=== PATIENT | male | born 2000 | race Caucasian/White ===

== ENCOUNTER 2024-07-31 20:49 | Observation (INO) ==
--- NOTE | 2024-07-31 21:41 | Emergency Department Note ---
Impression & Plan Acute appendicitis, Right lower quadrant abdominal pain ED Provider Note NAME: RUCHI CHRISTIE AGE: 23 SEX: M : 2000 ARRIVES VIA: Walk-In INFORMANT: Patient, ED PROVIDER(S): Michelet Parsons DO CHIEF COMPLAINT: Abdominal pain HPI: The patient is a 23-year-old male who presented to the emergency department for an evaluation of abdominal pain. The patient started having abdominal pain over the course the last 24 hours. Initially was generalized but now it appears to be in his right lower quadrant. He denies having any fever. He has had nausea and vomiting. He has no history of similar episodes in the past. The patient states pain is worsened with ambulation and palpation of the right lower quadrant. ROS: See above HPI for pertinent positives & negatives. A total of 10 systems reviewed and were otherwise negative. PAST MEDICAL HISTORY: See Below PAST SURGICAL HISTORY: See Below FAMILY HISTORY: See Below SOCIAL HISTORY: See Below HOME MEDICATIONS: See Below ALLERGIES: See Below VITALS: See Below PHYSICAL EXAMINATION: GENERAL: Patient is awake alert in no acute distress patient is resting comfortably and showing no signs of anxiety EYES: The conjunctivae are clear. The pupils are round and reactive. EARS, NOSE, MOUTH AND THROAT: The nose is without any evidence of any deformity. NECK: The neck is nontender and supple. RESPIRATORY: Normal respiratory effort is noted there is no evidence of wheezing rhonchi or rales CARDIOVASCULAR: Regular rate and rhythm noted there no murmurs rubs or gallops normal S1 normal S2. GASTROINTESTINAL: The abdomen is soft and nondistended. There is right lower quadrant tenderness which is moderate. MUSCULOSKELETAL/EXTREMITIES: There is no evidence of gross deformity full range of motion is noted in the hips and shoulders. SKIN: There is no obvious evidence of any rash. There are no petechiae, pallor or cyanosis noted. NEUROLOGIC: Patient is awake alert and oriented x3 MEDICAL DECISION MAKING: The patient is a 23-year-old male who presented to the emergency department for an evaluation of abdominal pain. The patient's pain appears to be consistent with acute appendicitis. He did have significant tenderness and guarding in the right lower quadrant. I discussed the patient's laboratory and radiographic studies with him. He was treated with IV fluids and IV antiemetics as well as IV pain medication. He was also treated with IV antibiotics for appendicitis that was noted on CAT scan. I discussed the patient's condition with the on- call general surgeon. They have agreed to evaluate the patient in the emergency department for further management and disposition. Triage Nursing notes reviewed. Prior medical records reviewed Vital Signs: reviewed and remarkable for hypotension. Differential diagnosis: Etiologies such as appendicitis, diverticulitis, obstruction, inflammatory bowel disease, renal colic, PUD, biliary pathology, pancreatitis, mesenteric ischemia, aortic pathology, infections, genitourinary, UTI, perforated viscus, as well as others were entertained. ER treatment provided: See below Diagnostics interpreted by me: ECG: none Cardiac Monitoring: An order was placed for continuous cardiac monitoring. The monitor shows a rate of 60 bpm with sinus rhythm. Laboratory studies: As stated above and show below. Imaging studies: See below. Radiographic imaging was reviewed by myself Consultation(s): I discussed this case with Dr. Padilla who is on-call for the general surgical group. Past Med/Surg History Problem List (Updated 07/31/24 @ 23:08 by Michelet Parsons DO) Right lower quadrant abdominal pain (Acute) Acute appendicitis (Acute) No significant past surgical history No chronic diseases present Social History Smoking Status: Current some day smoker Feels Safe at Home: Yes Results & Data (ED) Vital Signs Vital Signs - 24 hr 07/31/24 21:11 07/31/24 21:15 07/31/24 21:35 Temperature 36.5 C Temperature Source Temporal Artery Scan Pulse Rate 66 62 70 Pulse Rate [Apical] Pulse Rhythm Regular Pulse Rhythm [Apical] Pulse Strength [Apical] Respiratory Rate 20 18 Respiratory Effort / Characteristics Respiratory Depth Respiratory Pattern Blood Pressure 127/77 Blood Pressure [Right Arm] Blood Pressure Mean 93 Blood Pressure Mean [Right Arm] Blood Pressure Position [Right Arm] Pulse Oximetry 97 98 Oxygen Delivery Method Room Air Room Air Sepsis Recent Fever Within 48 Hours No Sepsis New/Unexplained Change in Mental Status No Sepsis Action Taken by Nursing No Action Required 07/31/24 22:00 Temperature Temperature Source Pulse Rate Pulse Rate [Apical] 60 Pulse Rhythm Pulse Rhythm [Apical] Regular Pulse Strength [Apical] Normal Respiratory Rate 18 Respiratory Effort / Characteristics Non-Labored Spontaneous Respiratory Depth Normal Respiratory Pattern Regular Blood Pressure Blood Pressure [Right Arm] 97/75 L Blood Pressure Mean Blood Pressure Mean [Right Arm] 82 Blood Pressure Position [Right Arm] Lying Pulse Oximetry 99 Oxygen Delivery Method Room Air Sepsis Recent Fever Within 48 Hours Sepsis New/Unexplained Change in Mental Status Sepsis Action Taken by Long Term Medications Current Medication List: was personally reviewed by me Laboratory Data Attestation: I reviewed the patient's lab results. 07/31/24 21:27 07/31/24 21:27 Lab Results 07/31/24 07/31/24 Range/Units 21:27 22:47 WBC 15.89 H (4.8-10.8) K/ul RBC 5.15 (4.70-6.10) M/uL Hgb 15.8 (14.0-18.0) g/dl Hct 46.6 (42.0-52.0) % MCV 90.5 (80.0-100.0) fL MCH 30.7 (25.0-34.0) pg MCHC 33.9 (32.0-36.0) g/dL RDW Std Deviation 39.2 (36.4-46.3) fL RDW Coeff of Mj 11.9 (11.5-14.5) % Plt Count 224 (130-400) K/uL MPV 10.2 (9.4-12.4) fL Immature Gran % (Auto) 0.3 % Neut % (Auto) 74.8 % Lymph % (Auto) 16.6 % [place] % (Auto) 7.1 % Eos % (Auto) 0.9 % Baso % (Auto) 0.3 % Neut # (Auto) 11.90 H (1.40-6.50) K/uL Lymph # (Auto) 2.63 (1.20-3.40) K/uL [place] # (Auto) 1.13 H (0.11-0.59) K/uL Eos # (Auto) 0.14 (0.00-0.50) K/uL Baso # (Auto) 0.04 (0.00-0.20) K/uL Immature Gran # (Auto) 0.05 (0.01-0.20) K/uL Sodium 138 (136-145) mmol/L Potassium 3.7 (3.5-5.1) mmol/L Chloride 102 (98-107) mmol/L Carbon Dioxide 28 (21-32) mmol/L Anion Gap 8 (3-11) BUN 17 (6-23) mg/dl Creatinine 1.05 (0.6-1.4) mg/dl Est Cr Clr Drug Dosing 148.5 ml/min Est GFR ( Amer) 117.0 ml/min Est GFR (Non-Af Amer) 101.0 ml/min BUN/Creatinine Ratio 16.2 (10-20) Glucose 84 (70-99(Fasting)) mg/dl Calcium 9.3 (8.6-10.3) mg/dl Total Bilirubin 0.4 (0.2-1.0) mg/dl AST 18 (13-39) U/L ALT 22 (7-52) U/L Alkaline Phosphatase 87 (34-104) U/L Total Protein 7.6 (6.0-8.3) gm/dl Albumin 4.9 (3.4-5.0) gm/dl Globulin 2.7 (2.5-4.0) gm/dl Albumin/Globulin Ratio 1.8 (0.9-2) Lipase 15 (11-82) U/L Urine Color Yellow Urine Appearance Clear (Clear) Urine pH 6.5 (4.5-7.5) Ur Specific [place] > 1.045 H (1.000-1.030) Urine Protein Negative (Negative) Urine Glucose (UA) Negative (Negative) Urine Ketones Negative (Negative) Urine Blood Negative (Negative) Urine Nitrite Negative (Negative) Urine Bilirubin Negative (Negative) Urine Urobilinogen Negative (Negative) Ur Leukocyte Esterase Negative (Negative) Administered Medications Sodium Chloride (Nss) 1,000 mls @ 999 mls/hr IV .Q1H1M ONE Stop: 07/31/24 23:34 Last Admin: 07/31/24 22:47 Dose: 999 mls/hr Documented By: IDD Discontinued Medications Sodium Chloride (Nss) 1,000 mls @ 999 mls/hr IV .Q1H1M ONE Stop: 07/31/24 22:33 Last Infusion: 07/31/24 23:06 Dose: Infused Documented By: Admin: 07/31/24 21:56 Dose: 999 mls/hr Documented By: RAJESH Acetaminophen (Ofirmev) 1,000 mg in 100 mls @ 400 mls/hr IV NOW STA Stop: 07/31/24 21:47 Last Infusion: 07/31/24 22:24 Dose: Infused Documented By: Admin: 07/31/24 21:56 Dose: 400 mls/hr Documented By: RAJESH Piperacillin Sod/Tazobactam Sod (Zosyn) 4.5 gm in 100 mls @ 200 mls/hr IV NOW ONE Stop: 07/31/24 23:03 Last Admin: 07/31/24 22:47 Dose: 200 mls/hr Documented By: RAJESH Ioversol (Optiray 320 100ml) 91 ml IV ONCE ONE Stop: 07/31/24 21:58 Last Admin: 07/31/24 21:57 Dose: 91 ml Documented By: CLAUDE Ondansetron HCl (Ondansetron Inj 2 Mg/Ml 2 Ml Vial) 4 mg IV NOW STA Stop: 07/31/24 21:34 Last Admin: 07/31/24 21:56 Dose: 4 mg Documented By: RAJESH Imaging Data Attestation: I personally reviewed and interpreted this imaging study as follows: My Impression: CT of the abdomen and pelvis was obtained in the emergency department. My interpretation is tubular structure in the right lower quadrant with stranding. This could be consistent with acute appendicitis. Final report below. Radiologist's Impression: Abdomen/Pelvis CT 07/31/24 21:33 CR Exam(s): CT ABDOMEN + PELVIS With Contrast IV Amt: 91 ML OPTIAY 320 EXAM: CT Abdomen and Pelvis With Intravenous Contrast CLINICAL HISTORY: Reason for exam: RLQ pain. TECHNIQUE: Axial computed tomography images of the abdomen and pelvis with intravenous contrast. CTDI is 28.14 mGy and DLP is 1513.9 mGy-cm. Automated exposure control was utilized for the study. A dose lowering technique was utilized adhering to the principles of ALARA. CONTRAST: Patient received 91 ML OPTIAY 320 of IV contrast COMPARISON: No relevant prior studies available. FINDINGS: Lung bases: Unremarkable. No mass. No consolidation. ABDOMEN: Liver: Fatty infiltration of liver. Gallbladder and bile ducts: Unremarkable. No calcified stones. No ductal dilation. Pancreas: Unremarkable. No mass. No ductal dilation. Spleen: Unremarkable. No splenomegaly. Adrenals: Unremarkable. No mass. Kidneys and ureters: Unremarkable. No solid mass. No hydronephrosis. Stomach and bowel: Unremarkable. No obstruction. No mucosal thickening. PELVIS: Appendix: Acute appendicitis without periappendiceal abscess. Bladder: Unremarkable. No mass. Reproductive: Unremarkable as visualized. ABDOMEN and PELVIS: Intraperitoneal space: Unremarkable. No free air. No significant fluid collection. Bones/joints: No acute fracture. No dislocation. Soft tissues: Unremarkable. Vasculature: Unremarkable. No abdominal aortic aneurysm. Lymph nodes: Unremarkable. No enlarged lymph nodes. IMPRESSION: Acute appendicitis without periappendiceal abscess Communications: Call Doctor Appendicitis Electronically signed by: Jadon Alvarez MD 07/31/24 22:25 PM Discharge Plan Visit Data Chief Complaint: Abdominal Pain Stated Complaint: ABD PAIN ED Provider: Michelet Parsons Discharge Problem: Acute appendicitis, Right lower quadrant abdominal pain Patient Disposition: Being Evaluated by Surgeon Forms Stand Alone Forms: [facility] Referrals Referrals: [facility] [Primary Care Provider] - Discharge Problem: Acute appendicitis Qualifiers: Acute appendicitis type: with localized peritonitis Appendicitis gangrene presence: without gangrene Appendicitis perforation presence: without perforation Appendicitis abscess presence: without abscess Qualified Code(s): K 35.30 - Acute appendicitis with localized peritonitis, without perforation or gangrene
[2024-07-31 21:43] LABS: Basophils # (auto) 0.04 K/uL (0.00-0.20); Basophils % (auto) 0.3 %; Eosinophils # (auto) 0.14 K/uL (0.00-0.50); Eosinophils % (auto) 0.9 %; Hematocrit (blood only) 46.6 % (42.0-52.0); Hemoglobin 15.8 g/dl (14.0-18.0); Immature Granulocytes # (auto) 0.05 K/uL (0.01-0.20); Immature Granulocytes % (auto) 0.3 %; Lymphocytes # (auto) 2.63 K/uL (1.20-3.40); Lymphocytes % (auto) 16.6 %; Mean Corpuscular Hemoglobin 30.7 pg (25.0-34.0); Mean Corpuscular Hgb Conc 33.9 g/dL (32.0-36.0); Mean Corpuscular Volume 90.5 fL (80.0-100.0); Mean Platelet Volume 10.2 fL (9.4-12.4); Monocytes # (auto) 1.13 K/uL (0.11-0.59); Monocytes % (auto) 7.1 %; Neutrophils % (auto) 74.8 %; Platelet Count 224 K/uL (130-400); RDW Coefficient of Variation 11.9 % (11.5-14.5); RDW Standard Deviation 39.2 fL (36.4-46.3); Red Blood Count 5.15 M/uL (4.70-6.10); White Blood Count 15.89 K/ul (4.8-10.8)
[2024-07-31 21:56] LABS: Albumin Globulin Ratio 1.8 (0.9-2); Albumin Level 4.9 gm/dl (3.4-5.0); BUN Creatinine Ratio 16.2 (10-20); Bilirubin,Total 0.4 mg/dl (0.2-1.0); Calcium 9.3 mg/dl (8.6-10.3); Creatinine Clr Calc Pharmacy 148.5 ml/min; Globulin 2.7 gm/dl (2.5-4.0); Potassium 3.7 mmol/L (3.5-5.1); Total Protein 7.6 gm/dl (6.0-8.3)
[2024-07-31] MEDS: ONDANSETRON INJ 2 MG/ML 2 ML VIAL IV STA (21:56)
[2024-07-31] MEDS: ACETAMINOPHEN 1,000 MG/100 ML VIAL IV STA (21:56)
[2024-07-31] MEDS: SODIUM CHLORIDE 0.9% 1,000 ML IV ONE ×2 (21:56→22:47)
[2024-07-31] MEDS: OPTIRAY 320 100ml IV ONE (21:57)
--- NOTE | 2024-07-31 22:26 | CT Scan Report ---
Exam(s): CT ABDOMEN + PELVIS With Contrast IV Amt: 91 ML OPTIAY 320 EXAM: CT Abdomen and Pelvis With Intravenous Contrast CLINICAL HISTORY: Reason for exam: RLQ pain. TECHNIQUE: Axial computed tomography images of the abdomen and pelvis with intravenous contrast. CTDI is 28.14 mGy and DLP is 1513.9 mGy-cm. Automated exposure control was utilized for the study. A dose lowering technique was utilized adhering to the principles of ALARA. CONTRAST: Patient received 91 ML OPTIAY 320 of IV contrast COMPARISON: No relevant prior studies available. FINDINGS: Lung bases: Unremarkable. No mass. No consolidation. ABDOMEN: Liver: Fatty infiltration of liver. Gallbladder and bile ducts: Unremarkable. No calcified stones. No ductal dilation. Pancreas: Unremarkable. No mass. No ductal dilation. Spleen: Unremarkable. No splenomegaly. Adrenals: Unremarkable. No mass. Kidneys and ureters: Unremarkable. No solid mass. No hydronephrosis. Stomach and bowel: Unremarkable. No obstruction. No mucosal thickening. PELVIS: Appendix: Acute appendicitis without periappendiceal abscess. Bladder: Unremarkable. No mass. Reproductive: Unremarkable as visualized. ABDOMEN and PELVIS: Intraperitoneal space: Unremarkable. No free air. No significant fluid collection. Bones/joints: No acute fracture. No dislocation. Soft tissues: Unremarkable. Vasculature: Unremarkable. No abdominal aortic aneurysm. Lymph nodes: Unremarkable. No enlarged lymph nodes. IMPRESSION: Acute appendicitis without periappendiceal abscess Communications: Call Doctor Appendicitis Electronically signed by: Jadon Alvarez MD 07/31/24 22:25 PM
[2024-07-31] MEDS: PIPERACILLIN/TAZOBACTAM 4.5 GM/100 ML BAG IV ONE (22:47)
[2024-07-31 23:03] LABS: Appearance Urine Clear (Clear); Bilirubin Urine Negative (Negative); Blood Urine Negative (Negative); Color Urine Yellow; Glucose Urine UA Negative (Negative); Ketones Urine Negative (Negative); Leukocyte Esterase Urine Negative (Negative); Nitrite Urine Negative (Negative); Protein Urine Negative (Negative); Specific Gravity Urine > 1.045 (1.000-1.030); Urobilinogen Urine Negative (Negative); pH Urine 6.5 (4.5-7.5)
--- NOTE | 2024-07-31 23:28 | History & Physical Report ---
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 He did have nausea and vomited once. No diarrhea. Last ate at 6 PM tonight. Denies fevers. Denies easing of the pain. White count of 15. CT scan with appendicitis. Allergies Allergy/AdvReac Type Severity Reaction Status Date / Time No Known Allergies Allergy Unverified 07/31/24 23:24 Home Medications Medication Instructions Recorded Confirmed Type levothyroxine 100 mcg tablet 100 mcg PO DAILYBB 07/31/24 07/31/24 History (Synthroid) methylphenidate HCl 54 mg 54 mg PO QAM 07/31/24 07/31/24 History tablet,extended release 24 hr (Concerta) semaglutide 1 mg/dose (4 mg/3 mL) 1 mg subcut WK 07/31/24 07/31/24 History subcutaneous pen injector (Ozempic) Past Med/Surg History Problem List Right lower quadrant abdominal pain (Acute) Acute appendicitis (Acute) No significant past surgical history No chronic diseases present Social History Smoking Status: Current some day smoker Feels Safe at Home: Yes Review of Systems Review of Systems: All systems reviewed & are unremarkable except as noted in HPI & below Physical Exam Constitutional: WD/WN, vitals as above Eyes: PERRL, conjunctivae normal, anicteric sclerae Neck: trachea midline, no thyromegaly Respiratory: normal respiratory effort; no respiratory distress and no labored breathing Cardiovascular: Rate/Rhythm: regular rate and regular rhythm Gastrointestinal (Abdomen): Inspection/Auscultation: abdomen normal to inspection; abdomen not distended Percussion/Palpation: + abdomen tender ( RLQ) and abdomen soft; no guarding and abdomen not rigid Skin: no rashes, warm and dry Psychiatric: A+Ox3, euthymic affect Results & Data Results & Data Vital Signs (Past 12 Hours) Vital Signs Temp Pulse Pulse Resp BP BP Pulse Ox 07/31/24 22:00 60 18 97/75 L 99 07/31/24 21:35 70 07/31/24 21:15 62 18 98 07/31/24 21:11 36.5 C 66 20 127/77 97 O2 Del Method 07/31/24 22:00 Room Air 07/31/24 21:35 07/31/24 21:15 Room Air 07/31/24 21:11 Room Air Laboratory Results 07/31/24 07/31/24 Range/Units 22:47 21:27 WBC 15.89 H (4.8-10.8) K/ul RBC 5.15 (4.70-6.10) M/uL Hgb 15.8 (14.0-18.0) g/dl Hct 46.6 (42.0-52.0) % MCV 90.5 (80.0-100.0) fL MCH 30.7 (25.0-34.0) pg MCHC 33.9 (32.0-36.0) g/dL RDW Std Deviation 39.2 (36.4-46.3) fL RDW Coeff of Mj 11.9 (11.5-14.5) % Plt Count 224 (130-400) K/uL MPV 10.2 (9.4-12.4) fL Immature Gran % (Auto) 0.3 % Neut % (Auto) 74.8 % Lymph % (Auto) 16.6 % [place] % (Auto) 7.1 % Eos % (Auto) 0.9 % Baso % (Auto) 0.3 % Neut # (Auto) 11.90 H (1.40-6.50) K/uL Lymph # (Auto) 2.63 (1.20-3.40) K/uL [place] # (Auto) 1.13 H (0.11-0.59) K/uL Eos # (Auto) 0.14 (0.00-0.50) K/uL Baso # (Auto) 0.04 (0.00-0.20) K/uL Immature Gran # (Auto) 0.05 (0.01-0.20) K/uL Sodium 138 (136-145) mmol/L Potassium 3.7 (3.5-5.1) mmol/L Chloride 102 (98-107) mmol/L Carbon Dioxide 28 (21-32) mmol/L Anion Gap 8 (3-11) BUN 17 (6-23) mg/dl Creatinine 1.05 (0.6-1.4) mg/dl Est Cr Clr Drug Dosing 148.5 ml/min Est GFR ( Amer) 117.0 ml/min Est GFR (Non-Af Amer) 101.0 ml/min BUN/Creatinine Ratio 16.2 (10-20) Glucose 84 (70-99(Fasting)) mg/dl Calcium 9.3 (8.6-10.3) mg/dl Total Bilirubin 0.4 (0.2-1.0) mg/dl AST 18 (13-39) U/L ALT 22 (7-52) U/L Alkaline Phosphatase 87 (34-104) U/L Total Protein 7.6 (6.0-8.3) gm/dl Albumin 4.9 (3.4-5.0) gm/dl Globulin 2.7 (2.5-4.0) gm/dl Albumin/Globulin Ratio 1.8 (0.9-2) Lipase 15 (11-82) U/L Urine Color Yellow Urine Appearance Clear (Clear) Urine pH 6.5 (4.5-7.5) Ur Specific [place] > 1.045 H (1.000-1.030) Urine Protein Negative (Negative) Urine Glucose (UA) Negative (Negative) Urine Ketones Negative (Negative) Urine Blood Negative (Negative) Urine Nitrite Negative (Negative) Urine Bilirubin Negative (Negative) Urine Urobilinogen Negative (Negative) Ur Leukocyte Esterase Negative (Negative) Diagnostic Findings ADDENDUM ADDENDUM: 07/31/24 22:35 Call Doctor Regarding Appendicitis, called ER clerk [place] on 07/31 22:35 (-04:00) Electronically signed by: Jadon Alvarez MD Electronically signed by: Jadon Alvarez MD 07/31/24 22:25 PM ADDENDUM END Exam(s): CT ABDOMEN + PELVIS With Contrast IV Amt: 91 ML OPTIAY 320 EXAM: CT Abdomen and Pelvis With Intravenous Contrast CLINICAL HISTORY: Reason for exam: RLQ pain. TECHNIQUE: Axial computed tomography images of the abdomen and pelvis with intravenous contrast. CTDI is 28.14 mGy and DLP is 1513.9 mGy-cm. Automated exposure control was utilized for the study. A dose lowering technique was utilized adhering to the principles of ALARA. CONTRAST: Patient received 91 ML OPTIAY 320 of IV contrast COMPARISON: No relevant prior studies available. FINDINGS: Lung bases: Unremarkable. No mass. No consolidation. ABDOMEN: Liver: Fatty infiltration of liver. Gallbladder and bile ducts: Unremarkable. No calcified stones. No ductal dilation. Pancreas: Unremarkable. No mass. No ductal dilation. Spleen: Unremarkable. No splenomegaly. Adrenals: Unremarkable. No mass. Kidneys and ureters: Unremarkable. No solid mass. No hydronephrosis. Stomach and bowel: Unremarkable. No obstruction. No mucosal thickening. PELVIS: Appendix: Acute appendicitis without periappendiceal abscess. Bladder: Unremarkable. No mass. Reproductive: Unremarkable as visualized. ABDOMEN and PELVIS: Intraperitoneal space: Unremarkable. No free air. No significant fluid collection. Bones/joints: No acute fracture. No dislocation. Soft tissues: Unremarkable. Vasculature: Unremarkable. No abdominal aortic aneurysm. Lymph nodes: Unremarkable. No enlarged lymph nodes. IMPRESSION: Acute appendicitis without periappendiceal abscess
[2024-07-31] MEDS: MoRPHine SULFATE 4 MG/ML 1 ML CARP\\VIAL IV STA (23:32)
[2024-07-31] MEDS ORDERED: SUCCINYLCHOLINE 100MG/5ML SYR IV ONE (23:47)
[2024-07-31] MEDS ORDERED: PROPOFOL IV EMULSION 10 MG/ML 20 ML VIAL IV ONE (23:47)
[2024-07-31] MEDS ORDERED: ONDANSETRON INJ 2 MG/ML 2 ML VIAL ONE (23:47)
[2024-07-31] MEDS ORDERED: LIDOCAINE 2% 2 ML VIAL/AMP(20MG/ML) INFIL ONE (23:47)
[2024-07-31] MEDS ORDERED: DEXAMETHASONE SOD INJ 4 MG/ML VIAL ONE (23:47)
[2024-07-31] MEDS ORDERED: ROCURONIUM BROMIDE 10 MG/ML 5 ML VIAL IV ONE (23:47)
[2024-07-31] MEDS ORDERED: fentaNYL citrate PF 100 MCG/2 ML VIAL ONE (23:48)
[2024-07-31] MEDS ORDERED: MIDAZOLAM HCL 1 MG/ML 2ML VIAL ONE (23:48)
[2024-08-01] MEDS ORDERED: fentaNYL citrate PF 100 MCG/2 ML VIAL IV PRN (00:05)
[2024-08-01] MEDS ORDERED: ATROPINE SULFATE 0.1 MG/ML 10ML SYR IV PRN ×2 (00:05→01:22)
[2024-08-01] MEDS ORDERED: ePHEDrine sulfate 50 MG/ML AMP IV PRN ×2 (00:05→01:22)
[2024-08-01] MEDS ORDERED: ONDANSETRON INJ 2 MG/ML 2 ML VIAL IV PRN ×2 (00:05→02:06)
--- NOTE | 2024-08-01 00:05 | Anesthesiology Consultation ---
Date of Service August 01, 2024 Assessment & Plan (1) Encounter for pre-operative examination: Chart Review Chart Review: Patient NOT seen in Pre Admission Testing urgent procedure Consults Requested none History Surgery Operation Date: 07/31/24 23:45 Proposed Procedures p Laparoscopic Appendectomy - Wai Padilla MD Height/Weight Height: 6 ft 1 in Weight: 116 kg Allergies Allergy/AdvReac Type Severity Reaction Status Date / Time No Known Allergies Allergy Unverified 07/31/24 23:24 Medications Home Medications Medication Instructions Recorded Confirmed Last Taken levothyroxine 100 mcg tablet 100 mcg PO DAILYBB 07/31/24 07/31/24 07/30/24 (Synthroid) methylphenidate HCl 54 mg 54 mg PO QAM 07/31/24 07/31/24 07/30/24 tablet,extended release 24 hr (Concerta) semaglutide 1 mg/dose (4 mg/3 mL) 1 mg subcut WK 07/31/24 07/31/24 07/23/24 subcutaneous pen injector (Ozempic) Social History Smoking Status: Current some day smoker Physical Exam Vital Signs Last Vital Signs Temp 97.7 F 07/31/24 21:11 Pulse 97 H 07/31/24 23:36 Resp 18 07/31/24 23:36 BP 142/72 H 07/31/24 23:36 Pulse Ox 100 07/31/24 23:36 O2 Del Method Room Air 07/31/24 23:36 Testing Laboratory Results 07/31/24 21:27 07/31/24 21:27 Urine Color Yellow 07/31/24 22:47 Urine Appearance Clear (Clear) 07/31/24 22:47 Urine pH 6.5 (4.5-7.5) 07/31/24 22:47 Ur Specific [place] > 1.045 (1.000-1.030) H 07/31/24 22:47 Urine Protein Negative (Negative) 07/31/24 22:47 Urine Glucose (UA) Negative (Negative) 07/31/24 22:47 Urine Ketones Negative (Negative) 07/31/24 22:47 Urine Nitrite Negative (Negative) 07/31/24 22:47 Ur Leukocyte Esterase Negative (Negative) 07/31/24 22:47
[2024-08-01] MEDS ORDERED: SUGAMMADEX SODIUM 200 MG/2 ML VIAL IV ONE (00:46)
[2024-08-01] MEDS: BUPIVACAINE/EPINEPHRINE 0.5% MPF 1:200,000 30 ML VIAL ONE (01:00)
--- NOTE | 2024-08-01 01:14 | Post Operative Brief Note ---
Immediate Post Op Note Date of Surgery August 01, 2024 Pre & Post Diagnosis Operation Date: 07/31/24 23:45 Pre-Op Diagnosis: Acute appendicitis Post-Op Diagnosis: Acute appendicitis I identified the patient and participated in the time-out.: Yes Procedure Operation Date: 07/31/24 23:45 Actual Procedures p Laparoscopic Appendectomy(Not Applicable) - Wai Padilla MD Surgeon Wai Padilla MD Cuff Matcher none Estimated Blood Loss 5 Findings Consistent with Post-Op Diagnosis
--- NOTE | 2024-08-01 01:15 | Operative Report ---
Post Operative Report Pre & Post Diagnosis Operation Date: 07/31/24 23:45 Pre-Op Diagnosis: Acute appendicitis Post-Op Diagnosis: Acute appendicitis I identified the patient and participated in the time-out.: Yes Procedure Operation Date: 07/31/24 23:45 Actual Procedures p Laparoscopic Appendectomy(Not Applicable) - Wai Padilla MD Surgeon Wai Padilla MD Security Control Center Operator none Estimated Blood Loss 5 Findings Consistent with Post-Op Diagnosis severely dilated acute appendicitis, no perforation; murky fluid within the pelvis Specimens appendix Drains none Anesthesia Type General Complications none Description of Procedure the patient was taken to the operating room, and placed supine on the operating table. A timeout was performed, perioperative antibiotics were administered, SCD boots were placed. After adequate anesthesia and analgesia was obtained, the abdomen was prepped and draped in the normal sterile fashion. A 1 cm incision was made in the supraumbilical region and carried down to the level of the fascia. A trach hook was used to grasp the fascia and elevated and a varies needle was used to enter the abdominal cavity. The abdomen was insufflated to a pressure of 15 mmHg, and a 5 mm trocar was placed in this location. A 5 mm 30 degree laparoscope was placed into the abdominal cavity, and the abdomen was surveyed. The patient was placed in Trendelenburg and slightly to the left. One 5 mm trocar was placed in the right upper quadrant, and one 12 mm trocar was placed in the left lower quadrant under direct visualization. The right colon was identified and traced down to the cecum. The appendix was identified and elevated anteriorly and medially. A window was created at the base of the appendix with a [place] dissector. The Endo CRISTHIAN stapler was used to transect the appendix at its base through noninflamed tissue, and subsequently the mesoappendix. The appendix was placed in an Endo Catch bag, and removed via the left lower quadrant port site. Attention was turned to hemostasis, which was excellent. The abdomen was copiously irrigated and suctioned free, and again hemostasis was found to be excellent. All trochars removed under direct visualization. The abdomen was desufflated. The fascia in the 12 mm port site was closed with a 0 Vicryl suture. The skin was closed with a running 4-0 Monocryl subcuticular stitch. Dermabond was applied. The patient tolerated the procedure without complication, and was transferred in stable condition to the PACU. All instrument, needle, and sponge counts were correct at the end of the case. I attest to the content of the Intraoperative Record and any orders documented therein. Any exceptions are noted below.
[2024-08-01] MEDS ORDERED: MEPERIDINE HCL 25 MG/ML CARP/VIAL IV PRN (01:22)
[2024-08-01] MEDS ORDERED: diphenhydrAMINE Capsule 25 MG CAP PO PRN (02:06)
[2024-08-01] MEDS ORDERED: oxyCODONE/ACETAMINOPHEN 5mg/325mg TAB PO PRN ×2 (02:06)
[2024-08-01] MEDS ORDERED: PROMETHAZINE 12.5 MG/50.5 ML BAG IV PRN (02:06)
[2024-08-01] MEDS ORDERED: MoRPHine SULFATE 2 MG/ML CARP IV PRN (02:06)
[2024-08-01] MEDS ORDERED: KETOROLAC 30 MG/ML VIAL IV PRN (02:06)
[2024-08-01] MEDS ORDERED: MoRPHine SULFATE 4 MG/ML 1 ML CARP\\VIAL IV PRN (02:06)
[2024-08-01] MEDS: MoRPHine SULFATE 4 MG/ML 1 ML CARP\\VIAL ONE (02:11)
--- NOTE | 2024-08-01 02:32 | Anesthesiology Progress Note ---
Date of Service August 01, 2024 Anesthesia Post Procedure Vital Signs Vital Signs: Temp Pulse Pulse Resp BP BP Pulse Ox 08/01/24 01:42 98.6 F 82 16 162/89 H 99 08/01/24 01:32 98.1 F 79 18 164/79 H 99 08/01/24 01:22 99.1 F 86 22 143/66 H 98 07/31/24 23:36 97 H 18 142/72 H 100 07/31/24 22:00 60 18 97/75 L 99 07/31/24 21:35 70 07/31/24 21:15 62 18 98 07/31/24 21:11 97.7 F 66 20 127/77 97 O2 Del Method 08/01/24 01:42 Room Air 08/01/24 01:32 Room Air 08/01/24 01:22 Room Air 07/31/24 23:36 Room Air 07/31/24 22:00 Room Air 07/31/24 21:35 07/31/24 21:15 Room Air 07/31/24 21:11 Room Air Pain Intensity Right Lower Abdomen: Pain Intensity: 7 Transfer of Care Handoff Completed per policy Notes Mental Status: alert / awake / arousable and participated in evaluation Patient Amnestic to Procedure: Yes Nausea / Vomiting: adequately controlled Pain: adequately controlled Airway Patency, RR, SpO2: stable & adequate BP & HR: stable & adequate Hydration State: stable & adequate Anesthetic Complications: no major complications apparent and Pt Satisfied with anesthetic care
[2024-08-01 04:23] VITALS: TEMP 98.1
[2024-08-01 05:55] VITALS: O2SAT 97
[2024-08-01 07:20] VITALS: PULSE 62; RESP 16
--- NOTE | 2024-08-01 09:00 | Discharge Summary ---
Date of Service August 01, 2024 Admission HPI Per Admitting Provider 23-year-old college student presents with a 1 day history of increasing abdominal pain in the midline subsequently tracking to the right lower quadrant. He did have nausea and vomited once. No diarrhea. Last ate at 6 PM tonight. Denies fevers. Denies easing of the pain. White count of 15. CT scan with appendicitis. Principal Diagnosis acute appendicitis Discharge Exam Constitutional WD/WN, vitals as above cooperative and comfortable; no acute distress and not ill appearing Respiratory normal respiratory effort; no respiratory distress Gastrointestinal (Abdomen) Inspection/Auscultation: abdomen normal to inspection and + abdominal surgical incision (c/d/i with dermabond); abdomen not distended Percussion/Palpation: + abdomen tender (RLQ and at incisions sites, mild) and abdomen soft; no guarding, abdomen not rigid and abdomen not firm Skin no rashes, warm and dry Psychiatric A+Ox3, euthymic affect Discharge Data Allergies Allergy/AdvReac Type Severity Reaction Status Date / Time No Known Allergies Allergy Unverified 07/31/24 23:24 Consultations 07/31/24 22:34 Consult General Surgery Stat Procedures Performed Operation Date: 07/31/24 23:45 Actual Procedures p Laparoscopic Appendectomy(Not Applicable) - Wai Padilla MD Ordered Studies 07/31/24 21:33 CT Abd and Pelvis [CT abd pelvis IV con only] Stat Hospital Course (1) Acute appendicitis: Plan Patient taken to operating room for laparoscopic appendectomy by Dr. Wai Padilla in the cadmium plater of 08/01/2024. Patient found to have severe acute appendicitis without perforation or abscess. Patient tolerated procedure without difficulty and transferred to med/surg floor for postoperative care. Diet and activity adavnced as tolerated, pain management and antiemetics as needed. Patient was discharged home in afternoon on operative day in stable condition. Total Time Total Time Spent Total Time Spent (In Minutes): 20 Total Time Includes: Examination of the Patient, Discharge Planning and Medication Reconciliation Discharge Plan Discharge Items Reason For Visit: LAPAROSCOPIC APPENDECTOMY Discharge Diagnosis: Acute appendicitis Activity: Per Instructions section Non-emergency contact: Primary Care Provider and Surgeon Call non-emergency contact if: you have any medication questions, your pain is not controlled, your pain is worsening, you have a fever, your temperature is above 101, your wound has increased redness, your wound has increased drainage and your wound pain has increased Follow-up/Referrals: Linda Carmichael PA-C [Physician Wardrobe Attendant] - [facility] [Primary Care Provider] - Diet: Regular Addtl Attending Provider Instructions: Post-Surgical ~Discharge Instructions Activity Recommendations: - lifting limitation: (20 pounds for 2 weeks), - exercise/sex/sports limit: (nonstrenuous for 2 weeks), - driving or machine use limit: (none for 1 week or until pain free and no longer taking narcotic pain medication, - Shower/bathe limit: (may shower beginning tomorrow, no submerging incisions underwater for 2 weeks) Diet: - Resume previous diet SPECIAL CARE INSTRUCTIONS: - May shower tomorrow morning. Let water run over area and pat dry. - Leave surgical glue on incisions this will fall off on its own. - Call the surgeon's office with any questions or concerns - - (ex. temperature higher than 101 degrees F, excessive bleeding or pain). MEDICATIONS: - Resume previous medications unless instructed otherwise by your surgeon. - May alternate extra strength Tylenol and Ibuprofen as needed for mild to moderate pain -650 mg Tylenol every 6 hours as needed. - Ibuprofen 600 mg every 6 hours as neeed, take with food - Percocet 1 every 6 hours, as needed for moderate to severe pain - Recommend daily stool softener (Colace) while taking narcotic pain medication to prevent constipation or straining. Drink plenty of water daily. FOLLOW UP VISIT: - If not already scheduled, please call the office to schedule a two week follow-up appointment. Office number Pending Studies at Discharge: Yes (appendix pathology, will be reviewed at postop visit) Stand-Alone Forms: My [facility], Work/School Release, Smoking Cessation Medications and DC Order Prescriptions: New oxycodone-acetaminophen 5-325 mg tablet 1 tab PO Q6H PRN (Reason: pain) Qty: 10 0RF Continued methylphenidate HCl [Concerta] 54 mg Tablet Extended Release 24hr 54 mg PO QAM levothyroxine [Synthroid] 100 mcg Tablet 100 mcg PO DAILYBB Ozempic 1 mg/dose (4 mg/3 mL) Pen Injector 1 mg SUBCUT WK Rx Instructions: takes on ( sundays ) but missed last one Admission Data Admit Date/Time: 08/01/24 01:18 Attending Provider: Wai Padilla Admit Provider: Wai Padilla Primary Care Provider: [facility] Other Providers: Wai Padilla
[2024-08-01 11:10] VITALS: BP 126/67
[2024-08-02] MEDS ORDERED: ENOXAPARIN INJ 40 MG/0.4 ML SYR SQ SCH (11:00)
== END 2024-08-01 13:07 | disposition home or self-care (01) ==
LOC: ED 20:49 → OR 23:55 → 3W 23:55
DX: K35.30 Acute appendicitis with localized peritonitis, without perforation or gangrene; F17.210 Nicotine dependence, cigarettes, uncomplicated; Z79.890 Hormone replacement therapy; Z79.899 Other long term (current) drug therapy